=== PATIENT | male | born 1980 | race Caucasian/White ===

== ENCOUNTER → 2023-04-18 | Emergency (ER) | payer BC ==
[~2023-04-18] MED LIST: ACETAMINOPHEN 500 MG TAB ONE; ASPIRIN EC 325 MG TABLET PO ONE; NITROGLYCERIN 0.4 MG/TAB SL ONE
[2023-04-18 09:39] LABS: Absolute Eosinophils 0.2 K/uL (0-0.5); Absolute Lymphocytes (CBC) 1.1 K/uL (0.7-4.9); Absolute Monocytes 0.4 K/uL (0.1-1.3); Absolute Neutrophil 4.5 K/uL (1.8-8.0); Basophils % 0.5 % (0-1.3); Eosinophils % 2.9 % (0-4.4); Hematocrit 38.7 % (39.6-49.0); Hemoglobin 13.3 g/dL (13.6-17.9); Lymphocytes % 17.8 % (15.3-44.8); MCHC 34.3 g/dL (32.0-36.0); MCV 90.3 fL (80-100); MPV 8.6 fL (7.6-11.3); Monocytes % 6.8 % (3.3-12.3); Platelets 238 thou/uL (152-406); RBC Red Blood Cell Count 4.28 M/uL (4.33-5.43); Red Cell Distribution Width 13.5 % (12.1-15.2)
[2023-04-18 09:58] LABS: Anion Gap 8.8 mEq/L (5.0-15.0); Potassium 3.8 mEq/L (3.5-5.1); Troponin High Sensitivity 3.7 pg/mL (<58.9)
--- NOTE | 2023-04-18 10:13 | RAD REPORT ---
EXAM DESCRIPTION: RAD - Chest Single View - 04/18/2023 10:06 am CLINICAL HISTORY: CHEST PAIN Chest pain. COMPARISON: No comparisons FINDINGS: Portable technique limits examination quality. The lungs are grossly clear. The heart is normal in size. No displaced fractures. IMPRESSION: No acute intrathoracic process suspected.
[2023-04-18 11:39] LABS: ALT/SGPT 36 U/L (16-61); AST/SGOT 17 U/L (15-37); Albumin 3.7 g/dL (3.4-5.0); Albumin/Globulin Ratio 1.1 (1.1-1.8); Alkaline Phosphatase 57 U/L (45-117); Bilirubin Total 0.3 mg/dL (0.2-1.0); Globulin 3.5 g/dL (2.3-3.5); Protein, Total 7.2 g/dL (6.4-8.2)
[2023-04-18 11:41] LABS: Bilirubin Direct < 0.1 mg/dL (0-0.2); Bilirubin Indirect, Calculated ND mg/dL (0.2-0.8)
--- NOTE | 2023-04-18 12:18 | EDPHYS ---
Physician Documentation [facility] Name: Stewart Mccann Age: 42 yrs Sex: Male : 1980 Arrival Date: 04/18/2023 Time: 08:49 Bed 15 Private MD: ED Physician Kenyon De Los Santos HPI: 04/17 09:18 This 42 yrs old Male presents to ER via Wheelchair with complaints of Chest Pain. rt 09:18 Patient presents to the ED with substernal chest pain described as pressure starting at rt 30 minutes prior to arrival. Patient was moving hoses when this occurred. He states that he was dizzy, sweaty, nauseated, not currently. States that the symptoms have improved but not resolved after resting. Denies other acute complaints at this time, symptoms are moderate severity, no other aggravating or alleviating factors.. Historical: - Allergies: :07 No Known Allergies; iw - PMHx: 09:07 Hypertensive disorder; Hypothyroidism; iw - PSHx: 09:07 None; iw - Immunization history:: Adult Immunizations not up to date. - Social history:: Smoking status: Patient denies any tobacco usage or history of. - Family history:: not pertinent. ROS: 09:18 Constitutional: Negative for fever, chills, and weight loss, MS/Extremity: Negative for rt injury and deformity, Neuro: Negative for headache, weakness, numbness, tingling, and seizure, 09:18 Cardiovascular: Positive for chest pain, Negative for edema, 09:18 Respiratory: Positive for shortness of breath, Negative for cough, 09:18 Abdomen/GI: Positive for nausea, Negative for abdominal pain, Exam: 09:18 Constitutional: This is a well developed, well nourished patient who is awake, alert, rt and in no acute distress. Head/Face: Normocephalic, atraumatic. Chest/axilla: Normal chest wall appearance and motion. Nontender with no deformity. No lesions are appreciated. Cardiovascular: Regular rate and rhythm with a normal S1 and S2. No gallops, murmurs, or rubs. Normal PMI, no JVD. No pulse deficits. Respiratory: Lungs have equal breath sounds bilaterally, clear to auscultation and percussion. No rales, rhonchi or wheezes noted. No increased work of breathing, no retractions or nasal flaring. Abdomen/GI: Soft, non-tender, with normal bowel sounds. No distension or tympany. No guarding or rebound. No evidence of tenderness throughout. Skin: Warm, dry with normal turgor. Normal color with no rashes, no lesions, and no evidence of cellulitis. MS/ Extremity: Pulses equal, no cyanosis. Neurovascular intact. Full, normal range of motion. 09:18 ECG was reviewed by the Attending Physician. Vital Signs: 09:07 BP 113 / 77; Pulse 86; Resp 16; Temp 98; Pulse Ox 98% on R/A; Weight 90.72 kg; Height 5 iw ft. 11 in. ; Pain 5/10; 10:12 BP 114 / 79; Pulse 82; Resp 12; Pulse Ox 99% ; ko1 11:00 BP 107 / 76; Pulse 76; Resp 15; Pulse Ox 98% ; ko1 09:07 Body Mass Index 27.89 (90.72 kg, 180.34 cm) iw 09:07 Pain Scale: Adult iw MDM: 09:05 Patient medically screened. rt 13:20 Differential diagnosis: ID, acute coronary syndrome, nonspecific chest pain, pneumonia, rt pneumothorax. HEART Score: History: Moderately Suspicious (1), ECG: Normal (0), Age: < or = 45 years (0), Risk Factors: 1 or 2 risk factors (1), Troponin: < or = 1 x Normal Limit (0), Total Score = 2. The patient was given aspirin in the Emergency Department. Data reviewed: vital signs, nurses notes, lab test result(s), EKG, radiologic studies. Consideration of Admission/Observation Escalation of care including admission/observation considered. I considered the following discharge prescriptions or medication management in the emergency department Medications were administered in the Emergency Department. See MAR. Independent interpretation of the following test(s) in the Emergency Department X-Ray: My interpretation is No pneumonia seen on interpretation of x-ray images. Test considered but Not performed: Labs: Recommended the patient stay for repeat troponin, he does not wish to stay for this. Return precautions discussed.. Counseling: I had a detailed discussion with the patient and/or guardian regarding the historical points, exam findings, and any diagnostic results supporting the discharge/admit diagnosis, lab results, radiology results, the need for outpatient follow up, to return to the emergency department if symptoms worsen or persist or if there are any questions or concerns that arise at home. 04/17 08:58 Order name: Basic Metabolic Panel; Complete Time: 10:14 iw 04/17 08:58 Order name: CBC with Diff; Complete Time: 10:14 iw 04/17 08:58 Order name: Troponin HS; Complete Time: 10:14 iw 04/17 09:10 Order name: LFT's; Complete Time: 11:44 rt 04/17 08:58 Order name: XRAY Chest (1 view); Complete Time: 10:14 iw 04/17 08:58 Order name: EKG; Complete Time: 08:59 iw 04/17 08:58 Order name: Cardiac monitoring; Complete Time: 09: iw 04/17 08:58 Order name: EKG - Nurse/Tech; Complete Time: 09: iw 04/17 08:58 Order name: IV Saline Lock; Complete Time: 09:30 iw 04/17 08:58 Order name: Labs collected and sent; Complete Time: 09:30 iw 04/17 08:58 Order name: O2 Per Protocol; Complete Time: 09: iw 04/17 08:58 Order name: O2 Sat Monitoring; Complete Time: 09:30 iw EC:18 Rate is 90 beats/min. Rhythm is regular, Normal Sinus Rhythm with No ectopy, Right rt bundle branch block. QRS Neversink is Normal. CO interval is normal. QRS interval is normal. QT interval is normal. No Q waves. No ST changes noted. Administered Medications: 09:38 Drug: Nitroglycerin Sublingual 0.4 mg Sublingual once; every five minute if needed x3 ko1 Route: Sublingual; 12:48 Follow up: Response: No adverse reaction ap3 09:38 Drug: Acetaminophen PO 1000 mg PO once Route: PO; ko1 12:48 Follow up: Response: No adverse reaction ap3 09:38 Drug: Aspirin PO 325 mg PO once Route: PO; ko1 12:48 Follow up: Response: No adverse reaction ap3 Disposition Summary: 04/18/23 12:18 Discharge Ordered Notes: Location: Home rt Problem: new rt Symptoms: have improved rt Condition: Stable rt Diagnosis - Chest pain, unspecified rt Followup: rt - With: Private Physician - When: 2 - 3 days - Reason: Discharge Instructions: - Discharge Summary Sheet rt - Nonspecific Chest Pain, Adult rt Forms: - Medication Reconciliation Form rt - Thank You Letter rt - Antibiotic Education rt - Prescription Opioid Use rt - Patient Portal Instructions rt - Leadership Thank You Letter rt Signatures: Dispatcher [employer] Annalise Beaevrs, RN Julianna Waggoner RN RN fe1 Kenyon De Los Santos MD MD rt Cha Garcia RN ap3
--- NOTE | 2023-04-18 12:18 | ER ---
Nurse's Notes [facility] Name: Stewart Mccann Age: 42 yrs Sex: Male : 1980 Arrival Date: 04/18/2023 Time: 08:49 Bed 15 Private MD: Diagnosis: Chest pain, unspecified Presentation: 04/17 08:59 Chief complaint: Patient states: midsternal chest pain X 30 minutes. Coronavirus iw screen: At this time, the client does not indicate any symptoms associated with coronavirus-19. Ebola Screen: Patient negative for fever greater than or equal to 101.5 degrees Fahrenheit, and additional compatible Ebola Virus Disease symptoms Patient denies exposure to infectious person. Patient denies travel to an Ebola-affected area in the 21 days before illness onset. No symptoms or risks identified at this time. Initial Sepsis Screen: Does the patient meet any 2 criteria? No. Patient's initial sepsis screen is negative. Does the patient have a suspected source of infection? No. Patient's initial sepsis screen is negative. Risk Assessment: Do you want to hurt yourself or someone else? Patient reports no desire to harm self or others. 08:59 Method Of Arrival: Wheelchair iw 08:59 Acuity: ROXI 3 iw 09:00 Onset of symptoms was April 18, 2023. ko1 Triage Assessment: 09:00 General: Appears in no apparent distress. uncomfortable, Behavior is calm, cooperative, ko1 appropriate for age. Pain: Complains of pain in chest. Historical: - Allergies: 09:07 No Known Allergies; iw - PMHx: 09:07 Hypertensive disorder; Hypothyroidism; iw - PSHx: 09:07 None; iw - Immunization history:: Adult Immunizations not up to date. - Social history:: Smoking status: Patient denies any tobacco usage or history of. - Family history:: not pertinent. Screenin:25 [facility] ED Fall Risk Assessment (Adult) History of falling in the last 3 months, ko1 including since admission No falls in past 3 months (0 pts) Confusion or Disorientation No (0 pts) Intoxicated or Sedated No (0 pts) Impaired Gait No (0 pts) Mobility Assist Device Used No (0 pt) Altered Elimination No (0 pt) Score/Fall Risk Level 0 - 2 = Low Risk Oriented to surroundings, Maintained a safe environment, Educated pt \\T\\ family on fall prevention, incl call for assistance when getting out of bed, Assessed \\T\\ reinforced patient's understanding of fall precautions, Provided non-skid footwear, Hourly rounding (assess needs \\T\\ fall precautionary measures) done, Used ambulatory aids as needed (educated on \\T\\ assisted with), Used gait belt as appropriate. Abuse screen: Denies threats or abuse. Denies injuries from another. Nutritional screening: No deficits noted. Tuberculosis screening: No symptoms or risk factors identified. Assessment: 09:00 Neuro: No deficits noted. Respiratory: No deficits noted. GI: No deficits noted. : No ko1 deficits noted. EENT: No deficits noted. Derm: No deficits noted. Musculoskeletal: Reports pain in chest. 09:25 Pain: Pain does not radiate. Pain began suddenly. Cardiovascular: Reports chest pain. ko1 12:49 General: patient states "can i just have my papers, or I will walk out" patient refused ap3 discharge vital signs. Vital Signs: 09:07 BP 113 / 77; Pulse 86; Resp 16; Temp 98; Pulse Ox 98% on R/A; Weight 90.72 kg; Height 5 iw ft. 11 in. ; Pain 5/10; 10:12 BP 114 / 79; Pulse 82; Resp 12; Pulse Ox 99% ; ko1 11:00 BP 107 / 76; Pulse 76; Resp 15; Pulse Ox 98% ; ko1 09:07 Body Mass Index 27.89 (90.72 kg, 180.34 cm) iw 09:07 Pain Scale: Adult iw ED Course: 08:50 Patient arrived in ED. mr 08:59 Julianna Younger, RN is Primary Nurse. ko1 09:00 Arm band placed on right wrist. Patient placed in an exam room, on a stretcher, on ko1 lunchroom monitor, on pulse oximetry, Patient notified of wait time. 09:01 Triage completed. iw 09:05 Kenyon De Los Santos MD is Attending Physician. rt 09:12 Missed attempt(s): 20 gauge in right antecubital area. [id number] 09:25 No provider procedures requiring assistance completed. Inserted saline lock: 20 gauge ko1 in right forearm, using aseptic technique. Blood collected. Patient maintains SpO2 saturation greater than 95% on room air. 09:25 Patient has correct armband on for positive identification. Bed in low position. Call ko1 light in reach. Side rails up X 1. Provided Education on: na. Client placed on continuous cardiac and pulse oximetry monitoring. NIBP monitoring applied. hospital monitor on. Door closed. Noise minimized. Lights dimmed. Warm blanket given. 09: Basic Metabolic Panel Sent. ko1 : CBC with Diff Sent. ko1 : Troponin HS Sent. ko1 :26 Initial lab(s) drawn, by me, sent to lab. ko1 10:08 XRAY Chest (1 view) In Process Unspecified. EDMS 12:48 Patient did not have IV access during this emergency room visit. ap3 Administered Medications: 09:38 Drug: Nitroglycerin Sublingual 0.4 mg Sublingual once; every five minute if needed x3 ko1 Route: Sublingual; 12:48 Follow up: Response: No adverse reaction ap3 09:38 Drug: Acetaminophen PO 1000 mg PO once Route: PO; ko1 12:48 Follow up: Response: No adverse reaction ap3 09:38 Drug: Aspirin PO 325 mg PO once Route: PO; ko1 12:48 Follow up: Response: No adverse reaction ap3 Medication: 09:25 VIS not applicable for this client. ko1 Outcome: 12:18 Discharge ordered by . rt 12:47 Discharged to home ambulatory, ap3 12:47 Condition: good 12:47 Discharge instructions given to patient, Instructed on discharge instructions, follow up and referral plans. Demonstrated understanding of instructions, follow-up care, 12:49 Patient left the ED. ap3 Signatures: Dispatcher [employer] EDRI UnrulyMegan, Reg Reg mr Annalise Crump RN RN iw Prokisch, Amanda, RN RN ap3 Julianna Younger RN RN ko1 Kenyon De Los Santos MD MD rt Gonzalez, Jordan jg11
[2023-04-18 13:18] VITALS: BP 107/76; TEMP 98; O2SAT 98
== END ==
LOC: ER 08:49
DX: R07.9 Chest pain, unspecified (principal); I10 Essential (primary) hypertension
CPT/HCPCS: 36415; 71045; 80048; 80076; 84484; 85025; 93005

== ENCOUNTER 2024-01-11 17:20 | Emergency (ER) | payer BC ==
[2024-01-11 18:10] LABS: PT Prothrombin Time 11.1 SECONDS (9.4-12.5); Protime INR 0.99
[2024-01-11 18:13] LABS: MPV 8.2 fL (7.6-11.3); Platelets 227 thou/uL (152-406)
[2024-01-11 18:21] LABS: Absolute Eosinophils 0.1 K/uL (0-0.5); Absolute Lymphocytes (CBC) 2.1 K/uL (0.7-4.9); Absolute Monocytes 0.5 K/uL (0.1-1.3); Absolute Neutrophil 6.4 K/uL (1.8-8.0); Basophils % 0.4 % (0-1.3); Eosinophils % 1.1 % (0-4.4); Hematocrit 41.2 % (39.6-49.0); Lymphocytes % 23.1 % (15.3-44.8); MCH 31.3 pg (27.0-35.0); MCHC 33.9 g/dL (32.0-36.0); MCV 92.3 fL (80-100); Monocytes % 5.6 % (3.3-12.3); Neutrophils % 69.8 % (41.7-73.7); Nucleated Red Blood Cells % 0.1 % (0-0); RBC Red Blood Cell Count 4.46 M/uL (4.33-5.43); Red Cell Distribution Width 14.3 % (12.1-15.2)
[2024-01-11 18:36] LABS: ALT/SGPT 33 U/L (16-61); AST/SGOT 17 U/L (15-37); Albumin 3.5 g/dL (3.4-5.0); Alkaline Phosphatase 45 U/L (45-117); Anion Gap 8.8 mEq/L (5.0-15.0); BUN Blood Urea Nitrogen 24 mg/dL (7-18); Bicarbonate 28 mEq/L (21-32); Bilirubin Total 0.3 mg/dL (0.2-1.0); Globulin 3.6 g/dL (2.3-3.5); Glomerular Filtration Rate 83 ml/min (=/>90); Glucose Level 96 mg/dL (74-106); Magnesium 2.2 mg/dL (1.6-2.4); NT PRO-BNP 15 pg/mL (<125); Potassium 3.8 mEq/L (3.5-5.1); Protein, Total 7.1 g/dL (6.4-8.2); Sodium Level 134 mEq/L (136-145)
[2024-01-11 18:40] LABS: Bilirubin Direct < 0.2 mg/dL (0-0.2); Bilirubin Indirect, Calculated 0.1 mg/dL (0.2-0.8); Troponin High Sensitivity < 3.0 pg/mL (<58.9)
--- NOTE | 2024-01-11 19:23 | RAD REPORT ---
EXAMINATION: CTA CHEST PE CLINICAL INDICATION: Shortness of breath TECHNIQUE: 100 cc 370 Isovue administered intravenously. This examination was performed according to an angiographic protocol with 3D post-processing. This involves 3D reconstructions, MIPs, volume rendered images and/or shaded surface rendering. One or more of the following dose reduction techniqu es were used: Automated exposure control, adjustment of the mA and/or kV according to patient size, and/or iterative reconstruction. Unless otherwise specified, incidental findings do not require dedic ated imaging follow-up. [id number]. COMPARISON: No prior exam. FINDINGS: A pulmonary embolus is not seen. An aortic aneurysm not noted. The aortic root 3.9 cm. No pleural effusion. No pericardial effusion. Chest for granuloma left lung. IMPRESSION: No evidence of a pulmonary embolism
--- NOTE | 2024-01-11 19:37 | EDPHYS ---
Physician Documentation [facility] Name: Stewart Mccann Age: 43 yrs Sex: Male : 1980 Arrival Date: 01/11/2024 Time: 17:20 Bed 3 Private MD: ED Physician Elliot Robbins HPI: 01/10 18:14 This 43 yrs old Male presents to ER via EMS with complaints of Shortness Of Breath. sp3 18:14 43-year-old male with history of hypertension, pleurisy, prior anxiety/panic attacks sp3 presents with chief complaint shortness of breath. He states he does not feel like it is his anxiety. In the past he has had similar symptoms in the last time he was told he had pleurisy and he was seen here. Patient denies any prolonged immobilization, long airplane or car rides, prior DVT or PE, chest pain, back pain or any anginal equivalents. He denies fever, cough, congestion, vomiting, diarrhea, fever, known sick contacts, travel history, or any other signs or symptoms on ROS at this time.. Historical: - Allergies: 17:30 No Known Allergies; tm6 - Home Meds: 17:30 Lisinopril Oral [Active]; Suboxone sublingual [Active]; levothyroxine oral [Active]; tm6 - PMHx: 17:30 Hypertensive disorder; Hypothyroidism; panic attacks (Hypothyroidism); pleurisy tm6 (Hypothyroidism); - PSHx: 17:30 None; tm6 - Immunization history:: Flu vaccine is up to date. - Infectious Disease History:: Denies. - Social history:: Smoking status: Patient denies any tobacco usage or history of. Patient/guardian denies using alcohol. ROS: 18:15 Constitutional: Negative for fever, chills, and weight loss, Eyes: Negative for injury, sp3 pain, redness, and discharge, ENT: Negative for injury, pain, and discharge, Neck: Negative for injury, pain, and swelling, Cardiovascular: Negative for chest pain, palpitations, and edema, Abdomen/GI: Negative for abdominal pain, nausea, vomiting, diarrhea, and constipation, Back: Negative for injury and pain, MS/Extremity: Negative for injury and deformity, Skin: Negative for injury, rash, and discoloration, Neuro: Negative for headache, weakness, numbness, tingling, and seizure, Psych: Negative for depression, anxiety, suicide ideation, homicidal ideation, and hallucinations, Allergy/Immunology: Negative for hives, rash, and allergies, Endocrine: Negative for neck swelling, polydipsia, polyuria, polyphagia, and marked weight changes, Hematologic/Lymphatic: Negative for swollen nodes, abnormal bleeding, and unusual bruising, 18:15 All other systems are negative, Exam: 18:15 Constitutional: This is a well developed, well nourished patient who is awake, alert, sp3 and in no acute distress. Head/Face: Normocephalic, atraumatic. Eyes: Pupils equal round and reactive to light, extra-ocular motions intact. Lids and lashes normal. Conjunctiva and sclera are non-icteric and not injected. Cornea within normal limits. Periorbital areas with no swelling, redness, or edema. ENT: Nares patent. No nasal discharge, no septal abnormalities noted. External auditory canals are clear. Oropharynx with no redness, swelling, or masses, exudates, or evidence of obstruction, uvula midline. Mucous membranes moist. Neck: Trachea midline, no thyromegaly or masses palpated, and no cervical lymphadenopathy. Supple, full range of motion without nuchal rigidity, or vertebral point tenderness. No Meningismus. Chest/axilla: Normal chest wall appearance and motion. Nontender with no deformity. No lesions are appreciated. Cardiovascular: Regular rate and rhythm with a normal S1 and S2. No gallops, murmurs, or rubs. Normal PMI, no JVD. No pulse deficits. Respiratory: Lungs have equal breath sounds bilaterally, clear to auscultation and percussion. No rales, rhonchi or wheezes noted. No increased work of breathing, no retractions or nasal flaring. Abdomen/GI: Soft, non-tender, with normal bowel sounds. No distension or tympany. No guarding or rebound. No evidence of tenderness throughout. Back: No spinal tenderness. No costovertebral tenderness. Full range of motion. Skin: Warm, dry with normal turgor. Normal color with no rashes, no lesions, and no evidence of cellulitis. MS/ Extremity: Pulses equal, no cyanosis. Neurovascular intact. Full, normal range of motion. Neuro: Awake and alert, GCS 15, oriented to person, place, time, and situation. Cranial nerves II-XII grossly intact. Motor strength 5/5 in all extremities. Sensory grossly intact. Cerebellar exam normal. Normal gait. Psych: Awake, alert, with orientation to person, place and time. Behavior, mood, and affect are within normal limits. 19:35 ECG was reviewed by the Attending Physician. EKG demonstrates normal sinus rhythm at 77 sp3 bpm with normal intervals, normal QRS, normal axis, nonspecific diffuse ST/T changes without evidence of acute ischemia. Vital Signs: 17:27 BP 139 / 98; Pulse 79; Resp 18; Temp 98.7(O); Pulse Ox 96% on R/A; MAP 110 mmHg; Weight tm6 86.18 kg; Height 5 ft. 11 in. ; Pain 7/10; 17:54 BP 138 / 92; Pulse 87; Resp 21; Pulse Ox 98% on R/A; hb 18:47 BP 129 / 89; Pulse 71; Resp 15; Pulse Ox 99% on R/A; MAP 102 mmHg; tm6 19:17 BP 130 / 93; Pulse 71; Resp 16; Pulse Ox 96% on R/A; al5 19:30 BP 129 / 83; Pulse 74; Resp 18; Pulse Ox 100% on R/A; al5 17:27 Body Mass Index 26.50 (86.18 kg, 180.34 cm) tm6 17:27 Pain Scale: Adult tm6 MDM: 17:30 Medical Screening Exam initiated sp3 18:16 Data reviewed: vital signs, nurses notes, lab test result(s), EKG, radiologic studies. sp3 ED course: 43-year-old male with PMH above now with shortness of breath. I am at highly suspicious of any critical illness however given his history we need to rule things out. Differential diagnosis includes anxiety, viral syndrome, acute coronary syndrome, PE, bronchitis, pneumonia, among others. Patient has never had CT imaging and we will obtain CT scan of the chest PE protocol, routine labs, EKG and general supportive care. Pulse oxygenation 98% on room air. If workup negative, we will safely discharge patient home with pulmonary follow-up for PFTs and other workup as indicated.. 19:36 ED course: Full workup negative. We will safely discharge patient home at this time sp3 with reassurance and follow-up with pulmonary.. 01/10 17:30 Order name: Basic Metabolic Panel; Complete Time: 18:42 sp3 01/10 17:30 Order name: CBC with Diff; Complete Time: 18:42 sp3 01/10 17:30 Order name: LFT's; Complete Time: 18:42 sp3 01/10 17:30 Order name: Magnesium; Complete Time: 18:42 sp3 01/10 17:30 Order name: NT PRO-BNP; Complete Time: 18:42 sp3 01/10 17:30 Order name: PT-INR; Complete Time: 18:42 sp3 01/10 17:30 Order name: Troponin HS; Complete Time: 18:42 sp3 01/10 17:37 Order name: CT Chest For PE Angio; Complete Time: 19:34 sp3 01/10 17:30 Order name: Cardiac monitoring; Complete Time: 17:36 sp3 01/10 17:30 Order name: EKG - Nurse/Tech; Complete Time: 17:55 sp3 01/10 17:30 Order name: IV Saline Lock; Complete Time: 17:55 sp3 01/10 17:30 Order name: Labs collected and sent; Complete Time: 18:09 sp3 01/10 17:30 Order name: O2 Per Protocol; Complete Time: 17:36 sp3 01/10 17:30 Order name: O2 Sat Monitoring; Complete Time: 17:36 sp3 Administered Medications: No medications were administered Disposition Summary: 01/11/24 19:36 Discharge Ordered Notes: Location: Home sp3 Condition: Stable sp3 Diagnosis - Shortness of breath sp3 Followup: sp3 - With: Kalin Mauricio MD - When: Upon discharge from the Emergency Department - Reason: Recheck today's complaints Discharge Instructions: - Discharge Summary Sheet sp3 - Shortness of Breath, Adult sp3 Forms: - Medication Reconciliation Form sp3 - Antibiotic Education sp3 - Prescription Opioid Use sp3 - Patient Portal Instructions sp3 - Leadership Thank You Letter sp3 Signatures: Dispatcher [employer] Elliot Crump MD MD sp3 Erica Machado RN RN tm6 Corrections: (The following items were deleted from the chart) 17:30 17:30 BASIC METABOLIC PANEL+C.LAB.BRZ ordered. EDMS EDMS 17:30 17:30 CBC+H.LAB.BRZ ordered. EDMS EDMS : 17:30 HEPATIC FUNCTION+C.LAB.BRZ ordered. EDMS EDMS : 17:30 MAGNESIUM+C.LAB.BRZ ordered. EDMS EDMS : 17:30 PROBNP+C.LAB.BRZ ordered. EDMS EDMS : 17:30 PROTIME (+INR)+COAG.LAB.BRZ ordered. EDMS EDMS : 17:30 Troponin High Sensitivity+C.LAB.BRZ ordered. EDMS EDMS : 17:31 Chest Single View+RAD.RAD.BRZ ordered. EDMS EDMS
--- NOTE | 2024-01-11 19:37 | ER ---
Nurse's Notes [facility] Name: Stewart Mccann Age: 43 yrs Sex: Male : 1980 Arrival Date: 01/11/2024 Time: 17:20 Bed 3 Private MD: Diagnosis: Shortness of breath Presentation: 01/10 17:27 Chief complaint: EMS states: patient having chest discomfort and shortness of breath tm6 for about 1.5 hours. Patient states he has an infection in his lungs and no one knows what it is. Coronavirus screen: Client denies travel out of the [place] in the last 14 days. Ebola Screen: Patient negative for fever greater than or equal to 101.5 degrees Fahrenheit, and additional compatible Ebola Virus Disease symptoms Patient denies exposure to infectious person. Patient denies travel to an Ebola-affected area in the 21 days before illness onset. No symptoms or risks identified at this time. Initial Sepsis Screen: Does the patient meet any 2 criteria? No. Patient's initial sepsis screen is negative. Does the patient have a suspected source of infection? No. Patient's initial sepsis screen is negative. Risk Assessment: Do you want to hurt yourself or someone else? Patient reports no desire to harm self or others. Onset of symptoms was January 11, 2024 at 16:00. 17:27 Method Of Arrival: EMS: [facility] tm6 17:27 Acuity: ROXI 3 tm6 Triage Assessment: 17:30 General: Appears in no apparent distress. Behavior is calm, cooperative. Pain: tm6 Complains of pain in chest Pain currently is 7 out of 10 on a pain scale. Pain began 2 hours ago. EENT: No signs and/or symptoms were reported regarding the EENT system. Neuro: Level of Consciousness is awake, alert, obeys commands, Oriented to person, place, time, situation. Cardiovascular: Reports chest pain, Patient's skin is warm and dry. Respiratory: Reports shortness of breath Airway is patent Respiratory effort is even, unlabored, Respiratory pattern is regular, symmetrical, Onset: The symptoms/episode began/occurred at an unknown time. the patient reports symptoms have resolved. GI: No signs and/or symptoms were reported involving the gastrointestinal system. Abdomen is flat, non-distended. : No signs and/or symptoms were reported regarding the genitourinary system. Derm: No signs and/or symptoms reported regarding the dermatologic system. Musculoskeletal: No signs and/or symptoms reported regarding the musculoskeletal system. Historical: - Allergies: 17:30 No Known Allergies; tm6 - Home Meds: 17:30 Lisinopril Oral [Active]; Suboxone sublingual [Active]; levothyroxine oral [Active]; tm6 - PMHx: 17:30 Hypertensive disorder; Hypothyroidism; panic attacks (Hypothyroidism); pleurisy tm6 (Hypothyroidism); - PSHx: 17:30 None; tm6 - Immunization history:: Flu vaccine is up to date. - Infectious Disease History:: Denies. - Social history:: Smoking status: Patient denies any tobacco usage or history of. Patient/guardian denies using alcohol. Screenin:34 [facility] ED Fall Risk Assessment (Adult) History of falling in the last 3 months, tm6 including since admission No falls in past 3 months (0 pts) Confusion or Disorientation No (0 pts) Intoxicated or Sedated No (0 pts) Impaired Gait No (0 pts) Mobility Assist Device Used No (0 pt) Altered Elimination No (0 pt) Score/Fall Risk Level 0 - 2 = Low Risk Oriented to surroundings, Maintained a safe environment, Educated pt \T\ family on fall prevention, incl call for assistance when getting out of bed. Abuse screen: Denies threats or abuse. Denies injuries from another. Nutritional screening: No deficits noted. Tuberculosis screening: No symptoms or risk factors identified. Assessment: 17:34 Reassessment: see triage assessment. Cardiovascular: Rhythm is. Cardiovascular: Rhythm tm6 is sinus rhythm. Respiratory: Airway is patent Respiratory effort is even, unlabored, Respiratory pattern is regular, symmetrical, Breath sounds are clear. 18:49 Reassessment: Patient and/or family updated on plan of care and expected duration. Pain tm6 level reassessed. Patient is alert, oriented x 3, equal unlabored respirations, skin warm/dry/pink. 19:16 General: Appears in no apparent distress. comfortable, Behavior is calm, cooperative. al5 Pain: Denies pain. Neuro: Level of Consciousness is awake, alert, obeys commands, Oriented to person, place, time, situation. Cardiovascular: Rhythm is sinus rhythm. Respiratory: Airway is patent Respiratory effort is even, unlabored, Respiratory pattern is regular, symmetrical. GI: Abdomen is flat, non-distended. : No signs and/or symptoms were reported regarding the genitourinary system. EENT: No signs and/or symptoms were reported regarding the EENT system. Derm: Skin is intact, is healthy with good turgor, Skin is pink, warm \T\ dry. normal. Musculoskeletal: No signs and/or symptoms reported regarding the musculoskeletal system. Vital Signs: 17:27 BP 139 / 98; Pulse 79; Resp 18; Temp 98.7(O); Pulse Ox 96% on R/A; MAP 110 mmHg; Weight tm6 86.18 kg; Height 5 ft. 11 in. ; Pain 7/10; 17:54 BP 138 / 92; Pulse 87; Resp 21; Pulse Ox 98% on R/A; hb 18:47 BP 129 / 89; Pulse 71; Resp 15; Pulse Ox 99% on R/A; MAP 102 mmHg; tm6 19:17 BP 130 / 93; Pulse 71; Resp 16; Pulse Ox 96% on R/A; al5 19:30 BP 129 / 83; Pulse 74; Resp 18; Pulse Ox 100% on R/A; al5 17:27 Body Mass Index 26.50 (86.18 kg, 180.34 cm) tm6 17:27 Pain Scale: Adult tm6 ED Course: 17:25 Patient arrived in ED. ss 17:26 Elliot Robbins MD is Attending Physician. sp3 17:27 Erica Machado, ALFRED is Primary Nurse. tm6 17:30 Triage completed. tm6 17:30 Arm band placed on right wrist. tm6 17:34 Patient has correct armband on for positive identification. Placed in gown. Bed in low tm6 position. Call light in reach. Side rails up X 1. Provided Education on: use of call joy. Client placed on continuous cardiac and pulse oximetry monitoring. NIBP monitoring applied. 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 Pulse ox on. NIBP on. Door closed. Noise minimized. Pillow given. 17:34 Maintain EMS IV. Dressing intact. Good blood return noted. Site clean \T\ dry. Gauge \T\ tm 6 site: 20g RAC. Flushed with 10 mL NS. 17:34 Patient maintains SpO2 saturation greater than 95% on room air. tm6 17:55 EKG done, by ED staff, reviewed by Elliot Robbins MD. tm6 19:09 CT Chest For PE Angio In Process Unspecified. EDMS 19:16 Cha Mcgregor, RN is Primary Nurse. al5 19:30 No provider procedures requiring assistance completed. IV discontinued, intact, al5 bleeding controlled, No redness/swelling at site. Pressure dressing applied. 19:36 Kalin Mauricio MD is Referral Physician. sp3 Administered Medications: No medications were administered Medication: 17:34 VIS not applicable for this client. tm6 Outcome: 19:36 Discharge ordered by . sp3 19:45 Discharged to home ambulatory, al5 19:45 Condition: good 19:45 Discharge instructions given to patient, Instructed on discharge instructions, follow up and referral plans. Demonstrated understanding of instructions, follow-up care, 20:15 Patient left the ED. al5 Signatures: Dispatcher [employer] EDMS Evy Wilkerson RN RN Beata Garcia, RN Elliot Hopkins MD MD sp3 Erica Machado RN RN tm6 Cha Mcgregor RN RN al5
[2024-01-11 22:58] VITALS: TEMP 98.7
[2024-01-11 23:03] VITALS: BP 129/83; O2SAT 100
== END 2024-01-11 20:15 | disposition home or self-care (01) ==
LOC: ER 17:20
DX: R06.02 Shortness of breath (principal); I10 Essential (primary) hypertension; E03.9 Hypothyroidism, unspecified
CPT/HCPCS: 85025; 80048; 36415; 83735; 85610; 80076; 84484; 83880; 71275; 99284; Q9967